=== PATIENT | male | born 1990 | race Caucasian/White ===

== ENCOUNTER 2019-12-13 07:29 | Emergency (ER) | payer MEDICAID, MEDICARE, SELFPAY | END 2019-12-13 09:57 | disposition admitted as inpatient to this hospital (09) | LOC: ER 03-09 10:18 | PROVIDERS: Emergency Provider Nurse Practitioner Family | DX: N45.1 Epididymitis (principal); F17.200 Nicotine dependence, unspecified, uncomplicated | CPT/HCPCS: 36415; 80053; 80306; 80307; 81003; 85025; 99284 ==

== ENCOUNTER 2019-12-13 07:29 | Inpatient (IN) | payer MEDICAID, SELFPAY ==
--- NOTE | 2019-12-13 07:33 | W.ED.PSYCH ---
HPI - Psych General: Chief Complaint: Psychiatric Symptoms Stated Complaint: SI Time Seen by Provider: 12/13/19 07:32 History of Present Illness: HPI Narrative: 29-year-old male patient comes in with his father for suicidal thoughts. Patient is agitated and upset due to not being able to get his medication prescribed. Patient has a history of schizophrenia. Patient had been on Seroquel but was taken off of it and 2018 and states that nothing that has been prescribed since then has been able to help him control his outbursts and his paranoid thoughts. Patient since October 29 reports that he has had more more suicidal thoughts. Medically patient states that he has had problems with elevated blood pressure in the past. Patient denies any alcohol use. Patient does report marijuana use. Patient does have a history of tobacco use but had stopped smoking cigarettes and August last year. Patient does have 2 kids with an estranged . Patient is in a present relationship with another female that is . Patient has had history of arrests with reported 38 times in the past and a 311-day stent [facility]. Patient appears well. Patient appears in no pain. Patient respects his father and praises his assistance. Patient does not want to talk about his mother, and becomes more agitated when questioned about her. Associated symptoms: Reports suicidal ideation Review of Systems General: Reports: 10 or more systems reviewed and unremarkable except in HPI and below Psych: Reports: anxiety, mood swings, irritability, paranoia and suicidal ideation PFSH ED PFSH: Statuses (acute, chronic, etc) shown below reflect problem list status as previously entered and may not be historically accurate Social History Smoking and tobacco status: former smoker Physical Exam Const: COMMON NORMALS: no apparent distress and oriented x3 GENERAL APPEARANCE: cooperative HENMT: COMMON NORMALS: normocephalic, external ears normal, EAC's normal, TM's normal bilaterally and external nose normal HEAD & SCALP: normal to inspection and normocephalic FACE & SINUS: normal facial exam NOSE: external nose normal GENERAL EAR: hearing not grossly impaired EXTERNAL EAR: Yes external ears normal EXTERNAL AUDITORY CANAL: EAC's normal TYMPANIC MEMBRANE: TM's normal bilaterally MOUTH: oral and palatal mucosa normal THROAT: posterior oropharynx normal Eye: COMMON NORMALS: PERRL and EOMs intact bilaterally PUPIL: Yes PERRL Neck/C-Spine: COMMON NORMALS: full ROM and no lymphadenopathy Lymph: LYMPHATIC: no lymphedema noted Chest: COMMONS NORMALS: inspection of chest normal and palpation of chest normal Resp: COMMON NORMALS: normal respiratory effort and clear to auscultation bilaterally AUSCULTATION: clear to auscultation bilaterally Cardio: COMMON NORMALS: regular rate and regular rhythm RATE: regular rate RHYTHM: regular rhythm GI: COMMON NORMALS: normal to inspection, nondistended, normoactive bowel sounds and non-tender : COMMON NORMALS: Yes no CVA tenderness BLADDER/KIDNEY EXAM: Yes no CVA tenderness Back/Pelvis: COMMON NORMALS: no CVA tenderness and thoracic and lumbar spine normal to inspection Extremity: COMMON NORMALS: normal to inspection GENERAL: No edema Neuro: COMMON NORMALS: oriented x3, moves all extremities and no focal motor deficits Psych: COMMON NORMALS: thought process normal (flight of idease, restless), cooperative, speech normal and denies homicidal ideation; negative for affect normal (agitated and restless) and negative for denies suicidal ideation SPEECH: Yes normal speech THOUGHT PROCESS: normal thought process (flight of idease, restless) Skin: COMMON NORMALS: no rashes or lesions noted GENERAL SKIN EXAM: no rashes or lesions noted MDM - Psych MDM Narrative: Medical decision making narrative: Patient comes in today for complaints of suicidal thoughts. Patient also reports increased agitation and restlessness. Patient appears upset, has flight of ideas, denies hallucination but does report paranoia. Exam respirations are even lungs are clear to auscultation skin is warm and dry and no observance of rash or other abnormality. Differential diagnosis includes substance abuse, suicidal thoughts, uncontrolled schizophrenia, acute psychosis. Patient was medicated in the ER with 200 mg of Seroquel and 2 mg of Ativan with control of agitation. Patient was cooperative through exam. But did have some outbursts and agitated actions. Laboratory values were insignificant. Patient was positive for THC. Discussed patient with Dr. Botello and Dr. Joseph. Dr. Rich did agreed to admission of patient to the psychiatric unit. Patient needs admission for monitoring for the protection of self and others. Patient needs admission for adjustment of medications and initiation of medications. Patient is voluntary for admission. Lab Data: Labs: Lab Results 12/13/19 12/13/19 12/13/19 Range/Units 07:57 07:57 08:18 WBC 6.6 (4.0-10.0) 10^3/ uL RBC 5.52 H (4.1-5.3) 10^6/u L Hgb 17.1 H (11.7-16.6) g/dL Hct 50.1 (42.0-52.0) % MCV 90.8 (80-94) fL MCH 31.0 (28.0-34.0) pg MCHC 34.1 (30.0-36.0) g/dL RDW 12.0 L (12.1-15.1) % Plt Count 420 H (130-400) 10^3/c mm MPV 9.0 (7.4-10.4) fL Neut % (Auto) 69.1 % Lymph % (Auto) 18.8 % [place] % (Auto) 8.2 % Eos % (Auto) 3.4 % Baso % (Auto) 0.2 % Neut # (Auto) 4.5 (1.8-7.7) 10^3/u L Lymph # (Auto) 1.2 (0.8-4.8) 10^3/u L [place] # (Auto) 0.5 (0.2-0.9) 10^3/u L Eos # (Auto) 0.2 (0.0-0.8) 10^3/u L Baso # (Auto) 0.0 (0.0-0.1) 10^3/u L Nucleated RBC % (a uto) 0 % Nucleated RBCs # 0.0 /100WBC Sodium 140 (136-145) mmol/L Potassium 4.4 (3.5-5.1) mmol/L Chloride 100 (98-107) mmol/L Carbon Dioxide 27 (22-29) mmol/L Anion Gap 17.4 (5-19) BUN 11 (6-20) mg/dL Creatinine 1.1 (0.7-1.2) mg/dL GFR Calculation 80.3 L (90-130) mL/min Glucose 131 H (74-109) mg/dL Calcium 10.7 H (8.6-10.0) mg/Dl Total Bilirubin 1.1 (0.15-1.2) mg/dL AST 17 (0-40) U/L ALT 15 (0-41) U/L Alkaline Phosphata se 74 (40-130) IU/L Total Protein 8.5 (6.6-8.7) g/dL Albumin 5.5 H (3.5-5.2) g/dL Globulin 3.0 (1.3-4.6) g/dL Urine Color Yellow (Yellow) Urine Appearance Clear (CLEAR) Urine pH 5 (5-7) Ur Specific Gravit y 1.015 (1.005-1.030) Urine Protein 1+ H (Negative) Urine Glucose (UA) Norm (Normal) Urine Ketones 1+ H (Negative) Urine Occult Blood Neg (Negative) Urine Nitrate Negative (Negative) Urine Bilirubin 1+ H (NEGATIVE) Urine Urobilinogen 1 H (Negative) mg/dL Ur Leukocyte Gabriella ase Negative (Negative) Urine RBC 0-4 H (0-2) /hpf Urine WBC 5-10 H (0-5) /hpf Ur Squamous Epith Cells 0-4 H (0-5) Urine Bacteria 1+ H (NONE) Hyaline Casts Rare Urine Mucus 2+ Salicylates < 0.3 L (3-10) mg/dL Urine Opiates Scre en (Negative) ng/mL Acetaminophen < 5.0 L (10-30) ug/mL Ur Barbiturates Sc reen (Negative) ng/mL Ur Phencyclidine S crn (Negative) ng/mL Ur Amphetamines Sc reen (Negative) ng/mL U Benzodiazepines Scrn (Negative) ng/mL Urine Cocaine Scre en (Negative) ng/mL U Marijuana (THC) Screen (Negative) ng/mL Ethyl Alcohol < 10 (0-10) mg/dL 12/13/19 Range/Units 08:18 WBC (4.0-10.0) 10^3/ uL RBC (4.1-5.3) 10^6/u L Hgb (11.7-16.6) g/dL Hct (42.0-52.0) % MCV (80-94) fL MCH (28.0-34.0) pg MCHC (30.0-36.0) g/dL RDW (12.1-15.1) % Plt Count (130-400) 10^3/c mm MPV (7.4-10.4) fL Neut % (Auto) % Lymph % (Auto) % [place] % (Auto) % Eos % (Auto) % Baso % (Auto) % Neut # (Auto) (1.8-7.7) 10^3/u L Lymph # (Auto) (0.8-4.8) 10^3/u L [place] # (Auto) (0.2-0.9) 10^3/u L Eos # (Auto) (0.0-0.8) 10^3/u L Baso # (Auto) (0.0-0.1) 10^3/u L Nucleated RBC % (a uto) % Nucleated RBCs # /100WBC Sodium (136-145) mmol/L Potassium (3.5-5.1) mmol/L Chloride (98-107) mmol/L Carbon Dioxide (22-29) mmol/L Anion Gap (5-19) BUN (6-20) mg/dL Creatinine (0.7-1.2) mg/dL GFR Calculation (90-130) mL/min Glucose (74-109) mg/dL Calcium (8.6-10.0) mg/Dl Total Bilirubin (0.15-1.2) mg/dL AST (0-40) U/L ALT (0-41) U/L Alkaline Phosphata se (40-130) IU/L Total Protein (6.6-8.7) g/dL Albumin (3.5-5.2) g/dL Globulin (1.3-4.6) g/dL Urine Color (Yellow) Urine Appearance (CLEAR) Urine pH (5-7) Ur Specific Gravit y (1.005-1.030) Urine Protein (Negative) Urine Glucose (UA) (Normal) Urine Ketones (Negative) Urine Occult Blood (Negative) Urine Nitrate (Negative) Urine Bilirubin (NEGATIVE) Urine Urobilinogen (Negative) mg/dL Ur Leukocyte Gabriella ase (Negative) Urine RBC (0-2) /hpf Urine WBC (0-5) /hpf Ur Squamous Epith Cells (0-5) Urine Bacteria (NONE) Hyaline Casts Urine Mucus Salicylates (3-10) mg/dL Urine Opiates Scre en Negative (Negative) ng/mL Acetaminophen (10-30) ug/mL Ur Barbiturates Sc reen Negative (Negative) ng/mL Ur Phencyclidine S crn Negative (Negative) ng/mL Ur Amphetamines Sc reen Negative (Negative) ng/mL U Benzodiazepines Scrn Negative (Negative) ng/mL Urine Cocaine Scre en Negative (Negative) ng/mL U Marijuana (THC) Screen Positive H (Negative) ng/mL Ethyl Alcohol (0-10) mg/dL Discharge Plan Discharge Patient Disposition: Admitted As Inpatient Clinical Impression: Suicidal ideation, Chronic schizophrenia Condition: Stable Coding Level of Care Code ED Personal Health Coach for Dalia Leslie Exam Problem Focused
[2019-12-13 07:35] VITALS: BMI 26.7
--- NOTE | 2019-12-13 07:48 | PC.NURSE ---
Pt placed in safe room, sitter at bedside. supervisor hospitality house notified of pt arrival. Pt placed in paper scrubs, belongings placed in safe. Security at bedside, Cody Sutherland at bedside. Pt is active and irritable, easily calmed. Pt with family at bedside.
--- NOTE | 2019-12-13 08:02 | PC.NURSE ---
pt given food and fluids.
[2019-12-13 08:03] LABS: Basophils % 0.2 %; Eosinophils # 0.2 10^3/uL (0.0-0.8); Eosinophils % 3.4 %; Hematocrit 50.1 % (42.0-52.0); Hemoglobin 17.1 g/dL (11.7-16.6); Lymphocytes # 1.2 10^3/uL (0.8-4.8); Lymphocytes % 18.8 %; Mean Corpuscular HGB Conc 34.1 g/dL (30.0-36.0); Mean Corpuscular Volume 90.8 fL (80-94); Monocytes # 0.5 10^3/uL (0.2-0.9); Monocytes % 8.2 %; Neutrophils # 4.5 10^3/uL (1.8-7.7); Neutrophils % 69.1 %; Nucleated Red Blood Cells % 0 %; Platelet Count 420 10^3/cmm (130-400); Red Blood Count 5.52 10^6/uL (4.1-5.3); White Blood Count 6.6 10^3/uL (4.0-10.0)
[2019-12-13] MEDS: quetiapine 100 mg Tablet 200 MG PO (08:14)
[2019-12-13] MEDS: LORazepam 1 mg Tablet PO (08:14)
[2019-12-13 08:22] LABS: Alanine Aminotransferase 15 U/L (0-41); Albumin Level 5.5 g/dL (3.5-5.2); Alkaline Phosphatase 74 IU/L (40-130); Anion Gap 17.4 (5-19); Aspartate Amino Transferase 17 U/L (0-40); Blood Urea Nitrogen 11 mg/dL (6-20); Calcium 10.7 mg/Dl (8.6-10.0); Carbon Dioxide 27 mmol/L (22-29); Chloride 100 mmol/L (98-107); Glomerular Filtration Rate 80.3 mL/min (90-130); Glucose 131 mg/dL (74-109); Potassium 4.4 mmol/L (3.5-5.1); Sodium 140 mmol/L (136-145); Total Bilirubin 1.1 mg/dL (0.15-1.2); Total Protein 8.5 g/dL (6.6-8.7)
[2019-12-13 08:26] LABS: Acetaminophen < 5.0 ug/mL (10-30); Alcohol Level < 10 mg/dL (0-10); Salicylate < 0.3 mg/dL (3-10)
[2019-12-13 08:49] LABS: Protein Urine 1+ (Negative); Specific Gravity, Urine 1.015 (1.005-1.030); Urine Appearance Clear (CLEAR); Urine Color Yellow (Yellow); pH Urine 5 (5-7)
[2019-12-13 08:50] LABS: Add Urine Microscopic? YES; Bilirubin Urine 1+ (NEGATIVE); Blood Urine Neg (Negative); Glucose Urine UA Norm (Normal); Ketones Urine 1+ (Negative); Leukocyte Esterase Urine Negative (Negative); Nitrate Urine Negative (Negative); Urobilinogen Urine 1 mg/dL (Negative)
[2019-12-13 08:52] LABS: Hyaline Casts Urine RARE; Mucus Urine 2+; RBC Urine 0-4 /hpf (0-2)
[2019-12-13 08:53] LABS: Add Urine Culture? No; Bacteria Urine 1+; Squamous Epithelial Cell Urine 0-4 (0-5)
--- NOTE | 2019-12-13 08:55 | PC.NURSE ---
assessment after anxiety medication administration-pt reports feeling less anxious. pt is no longer pacing in room or cursing loudly. pt sitting in chair calmly. ed provider notified.
[2019-12-13 09:02] LABS: Amphetamines Screen Urine Negative (Negative); Barbiturates Screen Urine Negative (Negative); Benzodiazepines Screen Urine Negative (Negative); Cocaine Screen Urine Negative (Negative); Opiate Screen Urine Negative (Negative); PCP Screen Urine Negative (Negative); THC Screen Urine Positive (Negative)
[2019-12-13 09:50] VITALS: BP 138/77; PULSE 123; RESP 14; TEMP 36.4; O2SAT 99
[2019-12-13 10:23] VITALS: BP 131/78; PULSE 113; RESP 18; TEMP 36.3; O2SAT 97
[2019-12-13] MEDS: quetiapine 100 mg Tablet PO ×2 (13:07→21:55)
--- NOTE | 2019-12-13 13:10 | PC.NURSE ---
PRN SEROQUEL PT GIVEN PRN SEROQUEL 100MG PO FOR AGITATION.
[2019-12-13 14:00] VITALS: BP 125/83; PULSE 107; RESP 19; TEMP 36.4
[2019-12-13 20:40] VITALS: BP 127/73; PULSE 88; RESP 21; TEMP 36.4; O2SAT 98
[2019-12-13] MEDS: doxepin 50 mg Capsule PO (21:55)
--- NOTE | 2019-12-13 23:11 | PC.NURSE ---
PT INTERVIEWED EARLY IN SHIFT BY ADMINISTRATION ASSISTANT. VERBALIZED HE WAS DEPRESSED AND SI WITHOUT PLAN. DURING INTERVIEW PT APPEARED TO HAVE DIFFICULTY IN FOCUSING AND UNABLE TO SIT STILL. PT HYPER TALKATIVE AND SPEECH PRESSURED. NOTED TO BE TANGENTIAL AND ENDORSED AH'S THAT ARGUE WITH HIM ON WHETHER HE SHOULD KILL HIS GIRLFRIEND. ADMITTED TO THOUGHTS OF HURTING OTHERS BUT DENIED TO TELL WHO THE PERSON/PERSONS WERE. ALSO ENDORSED VH'S OF OLD MAN THAT IS POINTING AT HIM TO GO A CERTAIN DIRECTION. LATER PT STARTED MOVING ALL THE SEATS TOGETHER. WHEN ASKED TO RETURN THEM TO WHERE THEY WERE PT SHOVED THEM TOGETHER AND ALMOST HIT ADMINISTRATION ASSISTANT. AT THAT TIME PT VERBALIZED THAT HE WAS THE STRONGEST PERSON THERE. ABLE TO CALM SELF DOWN. AT BEDTIME PT MEDICATED WITH DOXEPIN 50MGS AND SEROQUEL 100MGS. PT RESTING IN BED WITH EYES CLOSED AT THIS TIME. WILL CONTINUE TO MONITOR FREQUENTLY.
[2019-12-14 06:00] VITALS: BP 114/70; PULSE 79; RESP 18; TEMP 36.6; O2SAT 99
[2019-12-14] MEDS: quetiapine 100 mg Tablet PO ×3 (07:20→20:37)
--- NOTE | 2019-12-14 07:31 | P.HP_ITS ---
Providers/Chief Complaint Admitting Physician: Godwin Joseph MD Chief Complaint: SI HPI NPU History of Present Illness Arian Ahumada III is a 29 year old male Chief complaint: Make the voices stop. I have these voices in my head. They will stop. I used to take 800 mg of Seroquel. Note the Seroquel never help with the voices. But it took 800 mg to go to sleep. History of present illness: Marie Ahumada III Is a 29-year-old man who presents as it is really quite difficult to figure out. The story that he provides is internally consistent and generally logical but is inconsistent with his current presentation. All observations have described him as being a very volatile emotionally. He reports himself as having auditory hallucinations. He is in such significant emotional distress at the time of first interview, that he was unable to explore the variety and the breath of those hallucinations. He did say that they are always there and they never go away. He cannot describe them more other than that they are quite intrusive and affect his life and all areas. He says also that he cannot stop pacing. He adamantly denies that the pacing has any connection to prescriptions for the Seroquel and that there would be a side effect of Seroquel. He reported that 200 mg of Seroquel and 1 mg of Ativan giving yesterday was quite helpful. He is able to provide a little more information. she is reluctant to be seen as a week and is very hesitant to discuss symptoms of depression. However on multiple occasions he was observed crying in his room. He admits that he feels hopeless and worthless as a human being. His greatest desire is to have a relationship involving children where he can take care of them. I would give anything. I get my friends to assure off my back. At the same time his explosive outbursts are a real limiting factor in his relationships. He does report a history of trauma but is unwilling to discuss it. He reports nightmares. Urine drug screen is negative and blood alcohol level is below measurable limit. Information provided by emergency room staff: HPI Narrative: 29-year-old male patient comes in with his father for suicidal thoughts. Patient is agitated and upset due to not being able to get his medication prescribed. Patient has a history of schizophrenia. Patient had been on Seroquel but was taken off of it and 2017 and states that nothing that has been prescribed since then has been able to help him control his outbursts and his paranoid thoughts. Patient since October 27 reports that he has had more more suicidal thoughts. Medically patient states that he has had problems with elevated blood pressure in the past. Patient denies any alcohol use. Patient does report marijuana use. Patient does have a history of tobacco use but had stopped smoking cigarettes and August of last year. Patient does have 2 kids with an estranged . Patient is in a present relationship with another female that is . Patient has had history of arrests with reported 38 times in the past and a 311-day stent [facility]. Patient appears well. Patient appears in no pain. Patient respects his father and praises his assistance. Patient does not want to talk about his mother, and becomes more agitated when questioned about her. Mental health history: Social history: the patient is very reluctant to discuss his own personal social life. He says that he wants to have children because he never got to have a father when he was growing up who feels that he is able to support himself findings. Signed. He is perplexed that no woman with children will stay in his presence. 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 At the same time, he acknowledges that he is quite explosive and very sensitive to perceived slight. He has a tendency to expect to be treated badly and looks for signs of such behavior and attitude in others as signs of betrayal. He states that he was just released recently from incarceration for over 300 days. He was given no medications while in senior living. The tried to give him Remeron. He said it is illegal to give me Seroquel while in senior living. Legal history:According to the [place] public record, His most recent infection was for resisting arrest and he was given shock incarceration.He was convicted of resisting arrest on 1 prior occasion as well as threatening and harassing a minor and driving without a muscular. We have no access to arrest records from neighboring states. Past medical history:See documents from the emergency room nursing notes. Mental Status Exam: Patient is observed this morning at pacing incessantly throughout the unit and a rapid manner. Last evening he was also observed to be significantly vigilant though it did not cause disruption to the unit or place anybody at risk. During interview, he sits with his hands over his ears. Eye contact is fleeting. However it should be noted, that shortly after he was given when necessary dosing of Seroquel and lorazepam, he was sitting relaxed in the common area playing cards with peers demonstrating no indications of psychosis or even discomfort Or emotional distressof any kind. Appearance: hygiene is Good; no gross neurological deficits., gait is unremarkable; AIMS=0 Speech: Speech is of normal rate and rhythm and easily understood. Thought processes: Thought processes are [place]. Judgment is adequate for safety. Associations: intact Psychotic processes: There is no indication of guarding or paranoia. There is no attention to the internal stimuli. Auditory and visual hallucinations are denied. Judgment: Insight is fair. Problem solving skills are adequate for safety. Orientation: The patient is oriented to person, place time and situation. Memory: no deficits noted in immediate, intermediate, or remote spheres. Attention: The patient is alert and interpersonally engaged. Language: Verbalizations are coherent. Fund of knowledge: Fund of knowledge is poor. Affect/Mood: Affect is at times tearful with a depressed mood. He denied suicid al ideation Affective range Constricted Psychosis: perception unimpaired except through cognitive distortion; reality testing intact. Diagnoses:Major depression - single, severe, with psychotic fetures Schizophrenia - by history PTSD - presumtpive Assessment: first goal is to establish an effective diameter cycle sleeping at night and awake during the day and then try and manage symptoms of depression and psychosis. Treatment plan: Due to the psychiatric conditions and treatment listed in the Assessment and Plan - the patient requires continued hospitalization. Will provide a safe and therapeutic environment for patient.. Will continue inpatient treatment to allow for medication adjustment and monitoring. Will continue q15 min safety checks. The patient presents a diagnostic [place]. At this time we are going to initiate scheduled Seroquel will also provide medication for anxiety and insomnia. He adamantly states that he has taken 800 mg of Seroquel to help him sleep but at no time did Seroquel help with his primary complaint of auditory hallucinations. We are uncertain to what degree he is a lifelong. in the end, we decided to start off with 100 mg of Seroquel when necessary throughout the day today, he was willing to try 600 mg of Seroquel, 100 mg of doxepin for sleep and 20 mg of Paxil for bedtime. Monitor patient's mood, sleep, appetite, and behavior closely. Encourage patient to participate in individual and group therapeutic sessions on the [place]. Estimated length of stay 5 days The expected benefits and potential side effects of patient's psychiatric medications were discussed with the patient. The patient understands and consents to treatment.CRITERIA FOR DISCHARGE: stable on medications and no longer an imminent risk to self or others Meds NPU Home Medications Medication Instructions Recorded Confirmed Type No Known Home Medications 12/13/19 12/13/19 History Allergies Allergy/AdvReac Type Severity Reaction Status Date / Time amoxicillin Allergy ALGY-Rash Verified 12/13/19 07:35 codeine Allergy Unknown Verified 12/13/19 07:35 magnesium Allergy ALGY-Rash Verified 12/13/19 07:35 magnesium hydroxide Allergy ADR-Swelling Verified 12/13/19 07:35 [From Milk of Magnesia] of the Eye Penicillins Allergy ALGY-Hives Verified 12/13/19 07:35 PFSH NPU PFSH: Statuses (acute, chronic, etc) shown below reflect problem list status as previously entered and may not be historically accurate Social History Smoking and tobacco status: former smoker Vitals/I&O/Wt Last Vital Signs Temp 97.9 F 12/14/19 06:00 Pulse 79 12/14/19 06:00 Resp 18 12/14/19 06:00 BP 114/70 12/14/19 06:00 Pulse Ox 99 12/14/19 06:00 Weight last 48 hrs Weight 83.28 kg Weight 79.832 kg Data NPU : 12/13/19 07:57 12/13/19 07:57 Other Labs: Laboratory Tests 12/13/19 12/13/19 07:57 08:18 Urine Opiates Screen Negative Ur Barbiturates Screen Negative Ur Amphetamines Screen Negative U Benzodiazepines Scrn Negative Urine Cocaine Screen Negative U Marijuana (THC) Screen Positive H Ethyl Alcohol < 10 Involuntary Hold Information 96 Hour Hold: 96 Hour Involuntary Admission: No Attestations NPU Medical Necessity Statement*: patient will remain the hospital for 5 nights while we're able to get his medications effectively without side effects. Coding Level of Care Code Acute Glove Examiner for Dalia Leslie
[2019-12-14] MEDS: quetiapine 100 mg Tablet 200 MG PO ×2 (09:25→13:42)
[2019-12-14] MEDS: LORazepam 1 mg Tablet PO (09:25)
[2019-12-14 14:00] VITALS: BP 123/70; PULSE 102; RESP 18; TEMP 36.4; O2SAT 97
[2019-12-14 20:00] VITALS: BP 131/89; PULSE 82; RESP 24; TEMP 36.6; O2SAT 99
[2019-12-14] MEDS: doxepin 50 mg Capsule 100 MG PO (20:36)
[2019-12-14] MEDS: PARoxetine 20 mg Tablet PO (20:36)
[2019-12-14] MEDS: quetiapine 300 mg Tablet 600 MG PO (20:55)
[2019-12-14 22:00] VITALS: BP 131/89; PULSE 82; RESP 24; TEMP 36.6; O2SAT 99
[2019-12-15 06:00] VITALS: BP 121/74; PULSE 103; RESP 20; TEMP 36.6; O2SAT 98
[2019-12-15] MEDS: quetiapine 100 mg Tablet PO ×3 (08:02→20:46)
[2019-12-15] MEDS: hyDROXYzine 25 mg Capsule 50 MG PO (08:02)
--- NOTE | 2019-12-15 08:02 | PC.NURSE ---
PRN VISTARIL VISTARIL 50MG PO PER PT C/O ANXIETY/AGITATION. WILL CONTINUE TO MONITOR FOR MEDICATION EFFECTIVENESS.
--- NOTE | 2019-12-15 08:57 | PC.NURSE ---
PRN VISTARIL FOLLOW UP MEDICATION NOT EFFECTIVE. SEE NEXT NOTE.
[2019-12-15] MEDS: LORazepam 2 mg Tablet PO ×2 (09:01→16:44)
--- NOTE | 2019-12-15 09:01 | PC.NURSE ---
PRN ATIVAN ATIVAN 2MG PO PER PT C/O SEVERE ANXIETY. PATIENT PACING ROOM. WILL CONTINUE TO MONITOR FOR MEDICATION EFFECTIVENESS.
--- NOTE | 2019-12-15 10:00 | PC.NURSE ---
PRN ATIVAN FOLLOW UP MEDICATION EFFECTIVE. PATIENT IS SITTING IN THE DAYROOM CALM AND COOPERATIVE.
[2019-12-15 14:00] VITALS: BP 138/92; PULSE 103; RESP 20; TEMP 36.6; O2SAT 97
--- NOTE | 2019-12-15 14:59 | PC.SOCIAL ---
[facility] completed Medicaid application with patient.
--- NOTE | 2019-12-15 16:14 | PM.NPN ---
Subjective NPU Subjective: Interval history: patient is more open to discussing his psychosocial situation discretely. He was found crying in his room and was quite embarrassed by the activity. He has been rejected by a woman that he wanted to take in and take care of. He talked about wanting to be a father but not necessarily father children. He is looking to find a woman who has children that he can take care of. He talked about his frustrations and trying to be a good supportive person and being rejected because of his temper. Mental Status Exam MSE Comments: Mental Status Exam: Patient is observed this morning at pacing incessantly throughout the unit and a rapid manner. Last evening he was also observed to be significantly vigilant though it did not cause disruption to the unit or place anybody at risk. During interview, he sits with his hands over his ears. Eye contact is fleeting. However it should be noted, that shortly after he was given when necessary dosing of Seroquel and lorazepam, he was sitting relaxed in the common area playing cards with peers demonstrating no indications of psychosis or even discomfort Or emotional distressof any kind. Appearance: hygiene is Good; no gross neurological deficits., gait is unremarkable; AIMS=0 Speech: Speech is of normal rate and rhythm and easily understood. Thought processes: Thought processes are [place]. Judgment is adequate for safety. Associations: intact Psychotic processes: There is no indication of guarding or paranoia. There is no attention to the internal stimuli. Auditory and visual hallucinations are denied. Judgment: Insight is fair. Problem solving skills are adequate for safety. Orientation: The patient is oriented to person, place time and situation. Memory: no deficits noted in immediate, intermediate, or remote spheres. Attention: The patient is alert and interpersonally engaged. Language: Verbalizations are coherent. Fund of knowledge: Fund of knowledge is poor. Affect/Mood: Affect is at times tearful with a depressed mood. He denied suicidal ideation Affective range Constricted Psychosis: perception unimpaired except through cognitive distortion; reality testing intact. Diagnoses:Major depression - single, severe, with psychotic fetures Schizophrenia - by history PTSD - presumtpive Assessment: Treatment plan: Due to the psychiatric conditions and treatment listed in the Assessment and Plan - the patient requires continued hospitalization. Will provide a safe and therapeutic environment for patient.. Will continue inpatient treatment to allow for medication adjustment and monitoring. Will continue q15 min safety checks. Hospital Day #1: first goal is to establish an effective diameter cycle sleeping at night and awake during the day and then try and manage symptoms of depression and psychosis. The patient presents a diagnostic Conundrum. At this time we are going to initiate scheduled Seroquel will also provide medication for anxiety and insomnia. He adamantly states that he has taken 800 mg of Seroquel to help him sleep but at no time did Seroquel help with his primary complaint of auditory hallucinations. We are uncertain to what degree he is a lifelong. in the end, we decided to start off with 100 mg of Seroquel when necessary throughout the day today, he was willing to try 600 mg of Seroquel, 100 mg of doxepin for sleep and 20 mg of Paxil for bedtime. hospital day #2:Become increasingly apparent that the patient struggles with symptoms of severe depression amplified by psychogenic conflict psychosocial stressors. He continues to report auditory hallucinations are present but not as prominent. He does complain of his degree of depression, hopelessness, confusion, and nightmares. Plan: Replace doxepin with prazosin 2 mg at bedtime targeting PTSD.we'll continue with the paroxetine 20 mg at bedtime and Seroquel 900 mg daily. He remains a voluntary patient and is not an eminent risk to self or others. Cognition: Level of Consciousness: Awake, Alert, Inappropriate and Restless Patient Cognition Impaired: No Ability to Follow Directions: Good Patient Orientation (long list): Person and Place Hallucination Type: None Delusion Description: Not Present Thought Process: Circumstantial Affect: Affect Description: Calm Depressive Symptoms: Back Pain and Feelings of Worthlessness Behavior: Patient Behavior: Cooperative Speech Pattern: Clear Vitals/I&O/Wt Last Vital Signs Temp 97.8 F 12/15/19 14:00 Pulse 103 H 12/15/19 14:00 Resp 20 H 12/15/19 14:00 BP 138/92 12/15/19 14:00 Pulse Ox 97 12/15/19 14:00 Weight last 48 hrs Weight 83.28 kg Data NPU : 12/13/19 07:57 12/13/19 07:57 Involuntary Hold Information 96 Hour Hold: 96 Hour Involuntary Admission: No Attestations NPU Medical Necessity Statement*: patient to remain in the hospital another 3-4 nights until his auditory hallucinations are manageable. Coding Level of Care Code Acute Clinical Phlebotomist for Dalia Leslie
--- NOTE | 2019-12-15 16:44 | PC.NURSE ---
PRN ATIVAN ATIVAN 2MG PO ONE TIME ORDER FOR SEVERE ANXIETY. PATIENT WAS ON THE PHONE YELLING AND SCREAMING. LONG WALL MINING MACHINE HELPER TALKED WITH PATIENT TO CALM PATIENT DOWN. PATIENT TOOK MEDICATION AND WENT TO THE DAYROOM AND WAS CALM AND COOPERATIVE.
--- NOTE | 2019-12-15 17:44 | PC.NURSE ---
PRN ATIVAN FOLLOW UP MEDICATION EFFECTIVE. PATIENT IS SITTING IN THE DAY ROOM WATCHING TV AND TALKING WITH OTHER PATIENTS.
[2019-12-15] MEDS: quetiapine 100 mg Tablet 200 MG PO (19:52)
[2019-12-15 20:36] VITALS: BP 139/83; PULSE 94; RESP 16; TEMP 36.4; O2SAT 97
[2019-12-15] MEDS: quetiapine 300 mg Tablet 600 MG PO (20:45)
[2019-12-15] MEDS: prazosin 1 mg Capsule PO (20:45)
--- NOTE | 2019-12-15 22:26 | PC.NURSE ---
PT UP TO DESK STATING THAT HE WAS FEELING LIKE HIS AGITATION WAS BUILDING AT 1949. MEDICATED WITH SEROQUEL 200MGS PO. RETURNED TO DAYROOM AF AND WAS SITTING QUIETLY. VERBALIZED FEELING CALMER AT THAT TIME. E. RESTING IN BED WITH EYES CLOSED AT THIS TIME. WILL CONTINUE TO MONITOR
[2019-12-16] MEDS: PARoxetine 20 mg Tablet PO (05:56)
[2019-12-16 06:00] VITALS: BP 145/66; PULSE 89; RESP 18; TEMP 36.4; O2SAT 98
--- NOTE | 2019-12-16 07:58 | P.PN_ITS ---
Subjective NPU Subjective: Interval history: Patient openly discusses his need to be seeing a therapist on the outside to talk his problems and utilize for reality testing for his life circumstances. He continues to report hallucinations but it is unclear wherther these are hallucinations or internal conversation. . Mental Status Exam MSE Comments: Mental Status Exam: Patient is again observed this morning at pacing incessantly throughout the unit and a rapid manner. However, during the interview he is able to sit still and dispaly no akathesia. Eye contact is improved. Appearance: hygiene is Good; no gross neurological deficits., gait is unremarkable; AIMS=0 Speech: Speech is of normal rate and rhythm and easily understood. Thought processes: Thought processes are [place]. Judgment is adequate for safety. Associations: intact Psychotic processes: There is no indication of guarding or paranoia. There is no attention to the internal stimuli. Auditory and visual hallucinations are denied. Judgment: Insight is fair. Problem solving skills are adequate for safety. Orientation: The patient is oriented to person, place time and situation. Memory: no deficits noted in immediate, intermediate, or remote spheres. Attention: The patient is alert and interpersonally engaged. Language: Verbalizations are coherent. Fund of knowledge: Fund of knowledge is poor. Affect/Mood: Affect is at times tearful with a depressed mood. He denied suicidal ideation Affective range Constricted Psychosis: perception unimpaired except through cognitive distortion; reality testing intact. Diagnoses:Major depression - single, severe, with psychotic fetures Schizophrenia - by history PTSD - presumtpive Assessment: Treatment plan: Due to the psychiatric conditions and treatment listed in the Assessment and Plan - the patient requires continued hospitalization. Will provide a safe and therapeutic environment for patient.. Will continue inpatient treatment to allow for medication adjustment and monitoring. Will continue q15 min safety checks. Hospital Day #1: first goal is to establish an effective diameter cycle sleeping at night and awake during the day and then try and manage symptoms of depression and psychosis. The patient presents a diagnostic Conundrum. At this time we are going to initiate scheduled Seroquel will also provide medication for anxiety and insomnia. He adamantly states that he has taken 800 mg of Seroquel to help him sleep but at no time did Seroquel help with his primary complaint of auditory hallucinations. We are uncertain to what degree he is a lifelong. in the end, we decided to start off with 100 mg of Seroquel when necessary throughout the day today, he was willing to try 600 mg of Seroquel, 100 mg of doxepin for sleep and 20 mg of Paxil for bedtime. hospital day #2:Become increasingly apparent that the patient struggles with symptoms of severe depression amplified by psychogenic conflict psychosocial stressors. He continues to report auditory hallucinations are present but not as prominent. He does complain of his degree of depression, hopelessness, confusion, and nightmares. Plan: Replace doxepin with prazosin 2 mg at bedtime targeting PTSD.we'll continue with the paroxetine 20 mg at bedtime and Seroquel 900 mg daily. He remains a voluntary patient and is not an eminent risk to self or others. HD#3: Patient openly discusses his need to be seeing a therapist on the outside to talk his problems and utilize for reality testing for his life circumstances. He continues to report hallucinations but it is unclear wherther these are hallucinations or internal conversation. Renmains unclear whetehr his pacing is akathesia. PLAN: trial of metaprolol 25 mg q am to try and reduce explsoiveness. Cognition: Level of Consciousness: Awake, Alert, Inappropriate and Restless Patient Cognition Impaired: No Ability to Follow Directions: Good Patient Orientation (long list): Person and Place Hallucination Type: None Delusion Description: Not Present Thought Process: Circumstantial Affect: Affect Description: Anxious Depressive Symptoms: Back Pain and Feelings of Worthlessness Behavior: Patient Behavior: Appropriate Speech Pattern: Appropriate Vitals/I&O/Wt Last Vital Signs Temp 97.6 F 12/16/19 06:00 Pulse 89 12/16/19 06:00 Resp 18 12/16/19 06:00 BP 145/66 12/16/19 06:00 Pulse Ox 98 12/16/19 06:00 Data NPU : 12/13/19 07:57 12/13/19 07:57 Involuntary Hold Information 96 Hour Hold: 96 Hour Involuntary Admission: No Attestations NPU Medical Necessity Statement*: Pt to remain in hospital another 4 nights until he is able to declare that he is not an imminent risk to kill himself or someone else Coding Level of Care Code Acute Clinical Staff Rn for Dalia Leslie
[2019-12-16] MEDS: metoprolol succinate ER (24 HR) 25 mg Tablet PO (08:31)
[2019-12-16] MEDS: quetiapine 100 mg Tablet PO ×3 (08:31→21:21)
[2019-12-16] MEDS: quetiapine 100 mg Tablet 200 MG PO (09:37)
[2019-12-16] MEDS: OLANZapine ODT 5 MG TABLET PO (12:43)
--- NOTE | 2019-12-16 12:43 | PC.NURSE ---
Addendum entered by Kelly Nunez LPN 12/16/19 13:52: MEDICATION EFFECTIVE. PATIENT IS SITTING IN THE DAY ROOM TALKING WITH OTHER PATIENTS. Original Note: PRN ZYPREXA ZYDIS ZYPREXA ZYDIS 5MG PO FOR AGITATION/PSYCHOSIS. WILL CONTINUE TO MONITOR FOR MEDICATION EFFECTIVENESS.
[2019-12-16 14:00] VITALS: BP 116/70; PULSE 97; RESP 16; TEMP 36.8; O2SAT 97
[2019-12-16 21:16] VITALS: BP 138/82; PULSE 85; RESP 17; TEMP 36.4; O2SAT 97
[2019-12-16] MEDS: quetiapine 300 mg Tablet 600 MG PO (21:21)
[2019-12-16] MEDS: prazosin 1 mg Capsule PO (21:21)
[2019-12-16] MEDS: doxepin 50 mg Capsule PO (21:21)
[2019-12-17 06:00] VITALS: BP 127/80; PULSE 104; RESP 22; TEMP 36.6; O2SAT 97
[2019-12-17] MEDS: PARoxetine 20 mg Tablet PO (06:10)
[2019-12-17] MEDS: OLANZapine ODT 5 MG TABLET PO (07:54)
--- NOTE | 2019-12-17 07:54 | PC.NURSE ---
PRN ZYPREXA ZYDIS ZYPREXA ZYDIS 5MG PO PER PT C/O AGITATION/HALLUCINATIONS. WILL CONTINUE TO MONITOR FOR MEDICATION EFFECTIVENESS.
--- NOTE | 2019-12-17 09:00 | PC.NURSE ---
PRN ZYPREXA ZYDIS FOLLOW UP MEDICATION EFFECTIVE. NO FURTHER C/O AGITATION/HALLUCINATIONS.
[2019-12-17] MEDS: metoprolol succinate ER (24 HR) 25 mg Tablet PO (09:10)
[2019-12-17] MEDS: quetiapine 100 mg Tablet PO (09:10)
[2019-12-17 12:09] VITALS: BP 127/80; PULSE 104; RESP 22; TEMP 36.6; O2SAT 97
[2019-12-17 12:23] VITALS: BP 127/80; PULSE 104; RESP 22; TEMP 36.6; O2SAT 97
--- NOTE | 2019-12-17 12:59 | PM.NDC ---
Reason for Visit Reason for Visit: Reason For Visit: SI Hospital Course Hospital Course Chief complaint: Make the voices stop. I have these voices in my head. They will stop. I used to take 800 mg of Seroquel. Note the Seroquel never help with the voices. But it took 800 mg to go to sleep. History of present illness: Marie Ahumada III Is a 29-year-old man who presents as it is really quite difficult to figure out. The story that he provides is internally consistent and generally logical but is inconsistent with his current presentation. All observations have described him as being a very volatile emotionally. He reports himself as having auditory hallucinations. He is in such significant emotional distress at the time of first interview, that he was unable to explore the variety and the breath of those hallucinations. He did say that they are always there and they never go away. He cannot describe them more other than that they are quite intrusive and affect his life and all areas. He says also that he cannot stop pacing. He adamantly denies that the pacing has any connection to prescriptions for the Seroquel and that there would be a side effect of Seroquel. He reported that 200 mg of Seroquel and 1 mg of Ativan giving yesterday was quite helpful. He is able to provide a little more information. she is reluctant to be seen as a week and is very hesitant to discuss symptoms of depression. However on multiple occasions he was observed crying in his room. He admits that he feels hopeless and worthless as a human being. His greatest desire is to have a relationship involving children where he can take care of them. I would give anything. I get my friends to assure off my back. At the same time his explosive outbursts are a real limiting factor in his relationships. He does report a history of trauma but is unwilling to discuss it. He reports nightmares. Urine drug screen is negative and blood alcohol level is below measurable limit. Information provided by emergency room staff: HPI Narrative: 29-year-old male patient comes in with his father for suicidal thoughts. Patient is agitated and upset due to not being able to get his medication prescribed. Patient has a history of schizophrenia. Patient had been on Seroquel but was taken off of it and 2018 and states that nothing that has been prescribed since then has been able to help him control his outbursts and his paranoid thoughts. Patient since October 29 reports that he has had more more suicidal thoughts. Medically patient states that he has had problems with elevated blood pressure in the past. Patient denies any alcohol use. Patient does report marijuana use. Patient does have a history of tobacco use but had stopped smoking cigarettes and August of last year. Patient does have 2 kids with an estranged . Patient is in a present relationship with another female that is . Patient has had history of arrests with reported 38 times in the past and a 311-day stent Snf. Patient appears well. Patient appears in no pain. Patient respects his father and praises his assistance. Patient does not want to talk about his mother, and becomes more agitated when questioned about her. Mental health history: Social history: the patient is very reluctant to discuss his own personal social life. He says that he wants to have children because he never got to have a father when he was growing up who feels that he is able to support himself findings. Signed. He is perplexed that no woman with children will stay in his presence. 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 At the same time, he acknowledges that he is quite explosive and very sensitive to perceived slight. He has a tendency to expect to be treated badly and looks for signs of such behavior and attitude in others as signs of betrayal. He states that he was just released recently from incarceration for over 300 days. He was given no medications while in group home. The tried to give him Remeron. He said it is illegal to give me Seroquel while in group home. Legal history:According to the [place] public record, His most recent infection was for resisting arrest and he was given shock incarceration.He was convicted of resisting arrest on 1 prior occasion as well as threatening and harassing a minor and driving without a muscular. We have no access to arrest records from neighboring states. Past medical history:See documents from the emergency room nursing notes. Diagnoses:Major depression - single, severe, with psychotic features Schizophrenia - by history PTSD - Assessment: first goal is to establish an effective diameter cycle sleeping at night and awake during the day and then try and manage symptoms of depression and psychosis. Discharge Summary Treatment plan: Due to the psychiatric conditions and treatment listed in the Assessment and Plan - the patient requires continued hospitalization. Will provide a safe and therapeutic environment for patient.. Will continue inpatient treatment to allow for medication adjustment and monitoring. Will continue q15 min safety checks. Hospital Day #1: first goal is to establish an effective diameter cycle sleeping at night and awake during the day and then try and manage symptoms of depression and psychosis. The patient presents a diagnostic Conundrum. At this time we are going to initiate scheduled Seroquel will also provide medication for anxiety and insomnia. He adamantly states that he has taken 800 mg of Seroquel to help him sleep but at no time did Seroquel help with his primary complaint of auditory hallucinations. We are uncertain to what degree he is a lifelong. in the end, we decided to start off with 100 mg of Seroquel when necessary throughout the day today, he was willing to try 600 mg of Seroquel, 100 mg of doxepin for sleep and 20 mg of Paxil for bedtime. hospital day #2:Become increasingly apparent that the patient struggles with symptoms of severe depression amplified by psychogenic conflict psychosocial stressors. He continues to report auditory hallucinations are present but not as prominent. He does complain of his degree of depression, hopelessness, confusion, and nightmares. Plan: Replace doxepin with prazosin 2 mg at bedtime targeting PTSD.we'll continue with the paroxetine 20 mg at bedtime and Seroquel 900 mg daily. He remains a voluntary patient and is not an eminent risk to self or others. HD#3: Patient openly discusses his need to be seeing a therapist on the outside to talk his problems and utilize for reality testing for his life circumstances. He continues to report hallucinations but it is unclear wherther these are hallucinations or internal conversation. Renmains unclear whetehr his pacing is akathesia. PLAN: trial of metaprolol 25 mg q am to try and reduce explsoiveness. HD#4: By hospital day #4, the patient had established an effective diurnal sleep wake cycle. He was much less irritable. He was displaying better frustration Tolerance and problem-solving skills. His explosive outbursts had ceased. He continued to report auditory hallucinations but they were not interfering with his daily activities. His major problem at this time was managing the considerable psychosocial upheaval that seems to surround his life. He continues to grieve over the loss of his girlfriend who apparently also took his dog. He states that he is going to go live with his father though his mother is still involved. Historically, he reports that they have not been particularly supportive in the past. Involuntary Hold Information 96 Hour Hold: 96 Hour Involuntary Admission: No Mental Status Exam MSE Comments: Mental Status Exam: Patient is No longer pacing incessantly throughout the unit and a rapid manner. Eye contact is Good. Appearance: hygiene is Good; no gross neurological deficits., gait is unremarkable; AIMS=0 Speech: Speech is of normal rate and rhythm and easily understood. Thought processes: Thought processes are [place]. Judgment is adequate for safety. Associations: intact Psychotic processes: There is no indication of guarding or paranoia. There is no attention to the internal stimuli. Auditory are Reported to be present that reality testing is unimpaired. visual hallucinations are denied. Judgment: Insight is fair. Problem solving skills are adequate for safety. Orientation: The patient is oriented to person, place time and situation. Memory: no deficits noted in immediate, intermediate, or remote spheres. Attention: The patient is alert and interpersonally engaged. Language: Verbalizations are coherent. Fund of knowledge: Fund of knowledge is poor. Affect/Mood: Affect is Consistent with a Self-reported euthymicmood. He denied suicidal ideation Affective range Improved Psychosis: perception unimpaired except through cognitive distortion; reality testing intact. Discharge Data Vitals: Last Vital Signs Temp 98 F 12/17/19 12:23 Pulse 104 H 12/17/19 12:23 Resp 22 H 12/17/19 12:23 BP 127/80 12/17/19 12:23 Pulse Ox 97 12/17/19 12:23 Discharge Plan Discharge Patient Disposition: Home, Self-Care Condition: Stable Prescriptions: New doxepin 50 mg Capsule 50 mg PO BEDTIME PRN (Reason: insomnia) 30 Days Qty: 2 RF: 2 quetiapine 300 mg Tablet 600 mg PO BEDTIME Qty: 60 RF: 4 prazosin 1 mg Capsule 1 mg PO BEDTIME Qty: 30 RF: 4 quetiapine 100 mg Tablet 100 mg PO TID Qty: 90 RF: 4 paroxetine HCl 20 mg Tablet 20 mg PO QAM Qty: 30 RF: 4 metoprolol succinate 25 mg Tablet Extended Release 24 Hr 25 mg PO DAILY Qty: 30 RF: 4 lorazepam 1 mg Tablet 1 mg PO Q6H PRN (Reason: Anxiety) Qty: 60 RF: 2 Discharge Orders: Discharge Order (Routine); Ordered 12/17/19 Ordered By: Godwin Joseph Discharge Diet: Regular Discharge Activity: Increase activity as tolerated Activity Restrictions/Additional Instructions: [facility] [address] [facility] [address] [facility] [address] Walk In Between the Hours of 8AM and 5PM Urgent Care [address] [address] Walk In 10AM- 7PM Discharge Attestations NPU Time Spent in Discharge Care*: greater than 30 min Coding Level of Care Code Acute Environmental Web Crawler for Dalia Leslie
[2019-12-17 14:11] VITALS: BP 127/80; PULSE 104; RESP 22; TEMP 36.6; O2SAT 97
== END 2019-12-17 14:11 | disposition home or self-care (01) | DRG 885 ==
LOC: ER 09:17 → NP 09:46
PROVIDERS: Admitting Provider Psychiatry & Neurology Psychiatry; Emergency Provider Nurse Practitioner Family; Visit Provider Psychiatry & Neurology Psychiatry
DX: F32.3 Major depressive disorder, single episode, severe with psychotic features (principal); R45.851 Suicidal ideations; F43.10 Post-traumatic stress disorder, unspecified; F41.9 Anxiety disorder, unspecified; G47.00 Insomnia, unspecified; Z87.891 Personal history of nicotine dependence
CPT/HCPCS: 12345; 36415; 80053; 80306; 80307; 81003; 85025; 99284

== ENCOUNTER 2019-12-28 20:41 | Emergency (ER) | payer MEDICAID, SELFPAY ==
[2019-12-28 21:05] VITALS: BP 152/75; PULSE 95; RESP 16; TEMP 36.7; O2SAT 96; BMI 30.2
--- NOTE | 2019-12-28 21:18 | ED_ITS ---
HPI - Dental/Oral General: Chief complaint: Dental/Oral Stated complaint: dental pain Time Seen by Provider: 12/28/19 21:02 Source: patient Mode of arrival: ambulatory Limitations: no limitations History of Present Illness: HPI Narrative: Patient comes in with 3-day history of dental pain to the #19 tooth which is the first molar to the left lower jaw. Patient started having swelling to the jaw this morning. Patient appears well. Patient appears in no acute distress. Review of Systems General: Reports: 10 or more systems reviewed and unremarkable except in HPI and below ENMT: Reports: mouth pain PFSH ED PFSH: Statuses (acute, chronic, etc) shown below reflect problem list status as previously entered and may not be historically accurate Social History Smoking and tobacco status: current every day smoker Current gender identity: Male Physical Exam Const: COMMON NORMALS: no apparent distress and oriented x3 GENERAL APPEARANCE: cooperative HENMT: COMMON NORMALS: normocephalic, external ears normal, EAC's normal, TM's normal bilaterally and external nose normal HEAD & SCALP: normal to inspection and normocephalic FACE & SINUS: normal facial exam NOSE: external nose normal GENERAL EAR: hearing not grossly impaired EXTERNAL EAR: Yes external ears normal EXTERNAL AUDITORY CANAL: EAC's normal TYMPANIC MEMBRANE: TM's normal bilaterally MOUTH: oral and palatal mucosa normal TEETH & GINGIVA: Yes abnormal tooth and associated gingiva (Poor dentition with multiple caries, swelling of the gingiva to the lateral side of the first molar left lower jaw.) THROAT: posterior oropharynx normal Eye: COMMON NORMALS: PERRL and EOMs intact bilaterally PUPIL: Yes PERRL Neck/C-Spine: COMMON NORMALS: full ROM and no lymphadenopathy Lymph: LYMPHATIC: no lymphedema noted Chest: COMMONS NORMALS: inspection of chest normal and palpation of chest normal Resp: COMMON NORMALS: normal respiratory effort and clear to auscultation bilaterally AUSCULTATION: clear to auscultation bilaterally Cardio: COMMON NORMALS: regular rate and regular rhythm RATE: regular rate RHYTHM: regular rhythm GI: COMMON NORMALS: normal to inspection, nondistended, normoactive bowel sounds and non-tender : COMMON NORMALS: Yes no CVA tenderness BLADDER/KIDNEY EXAM: Yes no CVA tenderness Back/Pelvis: COMMON NORMALS: no CVA tenderness and thoracic and lumbar spine normal to inspection Extremity: COMMON NORMALS: normal to inspection GENERAL: No edema Neuro: COMMON NORMALS: oriented x3, moves all extremities and no focal motor deficits Psych: COMMON NORMALS: mental status grossly normal and cooperative Skin: COMMON NORMALS: no rashes or lesions noted GENERAL SKIN EXAM: no rashes or lesions noted Course Vital Signs: Vital signs: Vital Signs Temperature 98.0 F 12/28/19 21:05 Pulse Rate 95 12/28/19 21:05 Respiratory Rate 16 12/28/19 21:05 Blood Pressure 152/75 12/28/19 21:05 Pulse Oximetry 96 12/28/19 21:05 MDM - Dental/Oral MDM Narrative: Medical decision making narrative: Patient comes in today with some left lower jaw pain and swelling. On exam we note poor dentition with mul tiple caries. Patient has redness and tenderness to the gingival area with some swelling on the lateral aspect of the first molar of the left lower jaw. Posterior pharynx is normal-appearing, and no sublingual swelling is noted. Patient handle secretions well. Airway is intact. Differential diagnosis includes dental abscess, dental caries, odontalgia, retropharyngeal abscess. Reviewed exam with patient with recommendations for treatment with antibiotics and follow-up with dentist. Patient reports understanding agreed to plan. Discharge Plan Discharge Patient Disposition: Home, Self-Care Clinical Impression: Dental abscess Condition: Stable Prescriptions: New clindamycin HCl 150 mg capsule 450 mg PO BID 10 Days Qty: 60 RF: 0 Lidocaine Viscous 2 % solution 10 ml MUCOUS MEM Q3H PRN (Reason: pain) Qty: 100 RF: 0 No Action doxepin 50 mg Capsule 50 mg PO BEDTIME PRN (Reason: insomnia) 30 Days Qty: 2 RF: 2 quetiapine 300 mg Tablet 600 mg PO BEDTIME Qty: 60 RF: 4 prazosin 1 mg Capsule 1 mg PO BEDTIME Qty: 30 RF: 4 quetiapine 100 mg Tablet 100 mg PO TID Qty: 90 RF: 4 paroxetine HCl 20 mg Tablet 20 mg PO QAM Qty: 30 RF: 4 metoprolol succinate 25 mg Tablet Extended Release 24 Hr 25 mg PO DAILY Qty: 30 RF: 4 lorazepam 1 mg Tablet 1 mg PO Q6H PRN (Reason: Anxiety) Qty: 60 RF: 2 Discharge Orders: Discharge Order (Routine); Ordered 12/28/19 Ordered By: Live Sutherland Discharge Diet: Usual diet Discharge Activity: Resume usual activity Patient Instructions: Dental Abscess (ED) Activity Restrictions/Additional Instructions: Medications as directed Use acetaminophen and ibuprofen for pain Use viscous lidocaine for further pain relief Ice and heat is also effective Follow-up with dentist for definitive care Coding Level of Care Code ED Recreation Facility Manager for Dalia Leslie Exam Problem Focused
[2019-12-28] MEDS: lidocaine 2% viscous 15 mL UDC MUCOUS MEM (21:27)
[2019-12-28] MEDS: clindamycin 150 mg Capsule 300 MG PO (21:27)
[2019-12-28 21:42] VITALS: BP 152/75; PULSE 98; RESP 18; O2SAT 95
== END 2019-12-28 21:46 | disposition home or self-care (01) ==
PROVIDERS: Emergency Provider Nurse Practitioner Family
DX: K04.7 Periapical abscess without sinus (principal); F17.210 Nicotine dependence, cigarettes, uncomplicated
CPT/HCPCS: 99281; 99283

== ENCOUNTER 2020-01-26 10:18 | Emergency (ER) | payer MEDICAID, SELFPAY ==
[2020-01-26 10:43] VITALS: BP 134/81; PULSE 104; RESP 18; TEMP 37; O2SAT 96; BMI 30.4
--- NOTE | 2020-01-26 11:02 | ED_ITS ---
Entered by Thi Harris, acting as scribe for Veena Singh MD, [facility] Jan 26, 2020 10:18 HPI - Male Genitourinary General: Chief complaint: Urogenital-Male Stated complaint: testicular pain, lump in groin, vomiting Time Seen by Provider: 01/26/20 11:01 Source: patient and RN notes reviewed Mode of arrival: ambulatory Limitations: no limitations History of Present Illness: HPI Narrative: 29 yo male presents to ED with complaints of R sided groin pain, he said right next to the testicle. He said he has had pains in his groin before and he thought this would go away but it hasn't. He said he and his son were playing, his son jumped off of the couch and his son landed on the patient's groin. He said it hurts and morrow to urinate. He denies fever. He said he has been vomiting due to the pain. Complaint: testicle pain and genital injury (son jumped down and landed on his R groin area) Onset (ago): day(s) (10) Duration: constant and progressively worsening Location: right testicle and right inguinal region Radiation: right testicle Severity: severe Quality: sharp Relieving factors: none Exacerbating factors: urination, palpation and movement Context: trauma (son jumped down and landed on his R groin area) Associated symptoms: Reports vomiting Review of Systems General: Reports: 10 or more systems reviewed and unremarkable except in HPI and below Const: Denies: fever, chills or body aches Eyes: Denies: change in vision or blurry vision ENMT: Denies: throat pain, enlarged tonsils, painful swallowing, hoarseness, mouth pain or swelling of lips/tongue Card: Reports: chest pain; Denies: palpitations, irregular heart rhythm, edema or swelling of feet/ankles Resp: Denies: shortness of breath, productive cough or non-productive cough GI: Reports: vomiting : Denies: flank pain, urinary frequency, urinary urgency or urinary hesitancy Musc: Denies: neck pain, back pain or extremity swelling Skin/Breast: Denies: rash, itching or redness Neuro: Denies: headache, numbness in extremities or weakness in extremities Endo: Denies: excessive urination, excessive thirst or tired all the time PFSH ED PFSH: Social History Smoking and tobacco status: current every day smoker Current gender identity: Male Physical Exam Const: COMMON NORMALS: no apparent distress, average body habitus, oriented x3, no limitations, healthy appearing, alert and well nourished HENMT: COMMON NORMALS: normocephalic, head/scalp atraumatic and moist oral mucous membranes HEAD & SCALP: normocephalic and atraumatic Eye: COMMON NORMALS: PERRL, EOMs intact bilaterally, conjunctivae normal and no scleral icterus CONJUNCTIVA: Yes conjunctivae normal PUPIL: Yes PERRL Neck/C-Spine: COMMON NORMALS: full ROM, supple, no meningeal signs, no JVD and no carotid bruits Chest: COMMONS NORMALS: inspection of chest normal and palpation of chest normal Resp: COMMON NORMALS: normal respiratory effort, no retractions, no use of accessory muscles, clear to auscultation bilaterally and percussion normal AUSCULTATION: clear to auscultation bilaterally PERCUSSION: percussion normal Cardio: COMMON NORMALS: no JVD, regular rate, regular rhythm, S1 normal heart sound, S2 normal heart sound, no gallops, no clicks, no murmurs, no rub and peripheral pulses 2+ throughout RATE: regular rate RHYTHM: regular rhythm HEART SOUNDS: S1 normal and S2 normal PERIPHERAL PULSES: pulses 2+ throughout GI: COMMON NORMALS: normal to inspection, nondistended, normoactive bowel sounds, soft to palpation, non-tender, no hepatosplenomegaly, no masses and no bruits PALPATION: Yes soft and Yes no hepatosplenomegaly : COMMON NORMALS: Yes no CVA tenderness BLADDER/KIDNEY EXAM: Yes no CVA tenderness Back/Pelvis: COMMON NORMALS: no CVA tenderness Extremity: COMMON NORMALS: normal to inspection, full ROM, normal capillary refill, no calf tenderness and no pedal edema Neuro: COMMON NORMALS: oriented x3 SENSORIUM/ORIENTATION: Yes alert MENINGEAL SIGNS: Yes no meningeal signs Skin: COMMON NORMALS: no rashes or lesions noted, no wounds, skin turgor normal, no jaundice, no petechiae and no mottling GENERAL SKIN EXAM: no rashes or lesions noted and turgor normal Course Vital Signs: Vital signs: Vital Signs Temperature 98.6 F 01/26/20 10:43 Pulse Rate 104 H 01/26/20 10:43 Respiratory Rate 18 01/26/20 10:43 Blood Pressure 134/81 01/26/20 10:43 Pulse Oximetry 98 01/26/20 11:15 MDM - Male MDM Narrative: Medical decision making narrative: Discussed his lab and imaging findings with him. UA negative for a UTI. Ultrasound shows left-sided epididymis. He has varicoceles on the right. I discussed possible etiologies including STDs and the patient denies risk of STD. I informed him that we are sending his urine for GC and chlamydia. We will treat him with IM Rocephin and doxycycline. He voiced understanding and he is in agreement with the plan. He will f/u with his PCP. Medical Records: Attestation: I reviewed the patient's medical records. Lab Data: Attestation: I reviewed the patient's lab results. Labs: Lab Results 01/26/20 Range/Units 11:25 Urine Color Straw (Yellow) Urine Appearance Clear (CLEAR) Urine pH 6.5 (5-7) Ur Specific Gravit y 1.010 (1.005-1.030) Urine Protein Neg (Negative) Urine Glucose (UA) Norm (Normal) Urine Ketones Negative (Negative) Urine Blood Neg (Negative) Urine Nitrate Negative (Negative) Urine Bilirubin Neg (NEGATIVE) Urine Urobilinogen Norm (Negative) mg/dL Ur Leukocyte Gabriella ase Negative (Negative) Imaging Data: US: Radiologist's impression: [address] [address] Ultrasound Report Signed Patient: Arian Ahumada IIIUnit #: [id number] : 1990Acct#:[id number] Age/Sex: 29 / MADM Date: 01/26/20 Loc: ERRoom/Bed: Attending Dr: Ordering Provider/Ordering MD: Veena Singh MD, [facility] Date of Service: 01/26/20 Procedure(s): US scrotum 08291 Accession Number(s): [id number] Report Number: [id number] WS: [id number] SCROTAL ULTRASOUND REASON FOR EXAM: testicular pain COMPARISON: None available. TECHNIQUE: Grayscale and duplex color Doppler ultrasound examination of the scrotum. FINDINGS: RIGHT: Right testes measures 4.4 cm x 3.1 cm x 2.3 cm. Small hydrocele with debris. Right epididymis measures 1.3 cm x 1.7 cm . Prominent varicoceles are identified. The testicles show normal echotexture bilaterally. LEFT: Left testes measures 4.3 cm x 2.3 cm x 2.3 cm. Left epididymis measures 1.6 cm x 1.7 cm mild fluid accumulation suggesting inflammatory changes. / scrotum [id number] IMPRESSION: Varicoceles on the right side. There appears to be epididymitis on the left side. Dictated By:Darion Peace DO Signed By:Darion Peace DOSigned Date/Time:01/26/20 1227 DD/ Discharge Plan Discharge Patient Disposition: Home, Self-Care Clinical Impression: Epididymitis Condition: Stable Prescriptions: New doxycycline hyclate 100 mg capsule 100 mg PO Q12H 10 Days Qty: 20 RF: 0 Continued doxepin 50 mg Capsule 50 mg PO BEDTIME PRN (Reason: insomnia) 30 Days Qty: 2 RF: 2 quetiapine 300 mg Tablet 600 mg PO BEDTIME Qty: 60 RF: 4 prazosin 1 mg Capsule 1 mg PO BEDTIME Qty: 30 RF: 4 quetiapine 100 mg Tablet 100 mg PO TID Qty: 90 RF: 4 paroxetine HCl 20 mg Tablet 20 mg PO QAM Qty: 30 RF: 4 metoprolol succinate 25 mg Tablet Extended Release 24 Hr 25 mg PO DAILY Qty: 30 RF: 4 lorazepam 1 mg Tablet 1 mg PO Q6H PRN (Reason: Anxiety) Qty: 60 RF: 2 ibuprofen 200 mg Tablet 400 mg PO PRN RF: 0 Discharge Orders: Discharge Order (Routine); Ordered 01/26/20 Ordered By: Veena Singh Patient Instructions: Epididymitis (ED) Activity Restrictions/Additional Instructions: Return for any new or worsening symptoms. Take the antibiotics as prescribed. You will be contacted with the final results of your tests. Follow-up with your primary care provider within 1 week. It is important for you to complete the dose of the antibiotic that you were given. Coding Level of Care Code ED Camouflage Assembler for [facility] Fwd Exam Comprehensive The documentation recorded by the scribe, Harris,Thi R, accurately reflects the service I personally performed and the decisions made by me, Veena Singh MD, [facility] Jan 26, 2020 10:18
[2020-01-26 11:15] VITALS: O2SAT 98
--- NOTE | 2020-01-26 11:18 | US_ITS ---
WS: [id number] SCROTAL ULTRASOUND REASON FOR EXAM: testicular pain COMPARISON: None available. TECHNIQUE: Grayscale and duplex color Doppler ultrasound examination of the scrotum. FINDINGS: RIGHT: Right testes measures 4.4 cm x 3.1 cm x 2.3 cm. Small hydrocele with debris. Right epididymis measures 1.3 cm x 1.7 cm . Prominent varicoceles are identified. The testicles show normal echotexture bilaterally. LEFT: Left testes measures 4.3 cm x 2.3 cm x 2.3 cm. Left epididymis measures 1.6 cm x 1.7 cm mild fluid accumulation suggesting inflammatory changes. US/US scrotum [id number] IMPRESSION: Varicoceles on the right side. There appears to be epididymitis on the left side.
[2020-01-26 11:37] LABS: Add Urine Microscopic? NO
[2020-01-26 11:44] LABS: Bilirubin Urine Neg (NEGATIVE); Blood Urine Neg (Negative); Glucose Urine UA Norm (Normal); Ketones Urine Negative (Negative); Leukocyte Esterase Urine Negative (Negative); Nitrate Urine Negative (Negative); Protein Urine Neg (Negative); Urine Appearance Clear (CLEAR); Urine Color Straw (Yellow); Urobilinogen Urine Norm (Negative); pH Urine 6.5 (5-7)
[2020-01-26 14:09] VITALS: BP 132/88; PULSE 90; RESP 18; O2SAT 99
== END 2020-01-26 14:10 | disposition home or self-care (01) ==
PROVIDERS: Emergency Provider Family Medicine
DX: N45.1 Epididymitis (principal); I86.1 Scrotal varices; F17.200 Nicotine dependence, unspecified, uncomplicated
CPT/HCPCS: 76870; 81003; 87491; 87591; 99283; J0696; J2001

== ENCOUNTER → 2020-03-25 09:06 | Outpatient (BNVA) | payer MEDICAID, SELFPAY | PROVIDERS: Visit Provider Psychiatry & Neurology Psychiatry | DX: F20.9 Schizophrenia, unspecified (principal); F60.3 Borderline personality disorder; F33.2 Major depressive disorder, recurrent severe without psychotic features; F41.1 Generalized anxiety disorder; F12.10 Cannabis abuse, uncomplicated | CPT/HCPCS: 99204 ==

== ENCOUNTER → 2021-06-24 13:59 | Outpatient (BNVA) | payer MEDICAID, SELFPAY | PROVIDERS: Visit Provider Nurse Practitioner Family | DX: Z20.822 Contact with and (suspected) exposure to COVID-19 (principal); J06.9 Acute upper respiratory infection, unspecified; Z20.828 Contact with and (suspected) exposure to other viral communicable diseases | CPT/HCPCS: 87635 ==

== ENCOUNTER 2022-07-30 10:14 | Emergency (ER) | payer MEDICAID, SELFPAY ==
[2022-07-30 10:26] VITALS: BP 129/70; PULSE 69; RESP 14; TEMP 36.2; O2SAT 98; BMI 27.3
--- NOTE | 2022-07-30 10:33 | USR_ITS ---
PROCEDURE INFORMATION: Exam: US Scrotum Exam date and time: 07/30/2022 10:46 AM Age: 32 years old Clinical indication: Scrotum pain; Additional info: Scrot pain TECHNIQUE: Imaging protocol: Real-time ultrasound of the scrotum and contents with color Doppler and image documentation. COMPARISON: US scrotum [id number] 01/26/2020 11:53 AM FINDINGS: Right testicle: Normal. No mass. No torsion. Normal vascular flow. Left testicle: Normal. No mass. No torsion. Normal vascular flow. Epididymides: Normal. Scrotum: Bilateral hydroceles. Small left varicocele. Scrotal wall thickening is mild at 3.3 mm. US/US scrotum [id number] IMPRESSION: Bilateral hydroceles with a left varicocele. No evidence of torsion.
[2022-07-30] MEDS: ketorolac 30 mg/mL INJ IM (12:02)
[2022-07-30 12:32] LABS: Add Urine Microscopic? NO; Charge for UA Resulting for Rev
[2022-07-30 12:48] LABS: Bilirubin Urine Neg (Negative); Blood Urine Neg (Negative); Glucose Urine UA Norm (Normal); Ketones Urine Negative (Negative); Leukocyte Esterase Urine Negative (Negative); Nitrate Urine Negative (Negative); Protein Urine Neg (Negative); Specific Gravity, Urine 1.025 (1.005-1.030); Urine Appearance Clear (CLEAR); Urine Color Yellow (Yellow); Urobilinogen Urine Norm (Negative); pH Urine 5 (5-7)
--- NOTE | 2022-07-31 00:15 | W.ED.MALEGU ---
HPI - Male Genitourinary General: Chief complaint: Urogenital-Male Stated complaint: Testicle pain Time Seen by Provider: 07/30/22 10:31 History of Present Illness: 32-year-old male patient presents to the emergency department complaining of testicle pain. Patient states he had a twisted testicle 2 years ago and it feels the same. Patient denies any urinary complaints patient denies any abdominal pain or back pain. Patient denies any injury or trauma. Patient denies any fever. Patient denies any concern for STDs. Patient denies any penile discharge. Associated symptoms: Deny dysuria, hematuria, nausea or vomiting Review of Systems Const: Denies: fever(s), chills, body aches, change in appetite, change in weight, fatigue, malaise or diaphoresis Eyes: Denies: change in vision, blurry vision, blind spots, photophobia, eye discomfort, eye discharge, eye redness, floaters or seeing flashes ENMT: Denies: throat pain, uvular edema, enlarged tonsils, odynophagia, hoarseness, mouth pain, swelling of lips/tongue, oral sores, bleeding gums, dental pain, dry mouth, ear or mastoid pain, ear discharge, change in hearing, tinnitus, disequilibrium, nasal discharge, nasal congestion, post nasal drip or sinus pain Card: Denies: chest pain, palpitations, irregular heart rhythm, edema, swelling of feet/ankles, lightheadedness, syncope, pre-syncope, dyspnea on exertion, orthopnea, leg pain with exertion or acrocyanosis Resp: Denies: dyspnea, productive cough, non-productive cough, wheezing, stridor, pain on inspiration, change in phlegm color, hemoptysis or chest congestion GI: Denies: abdominal pain, nausea, vomiting, hematemesis, dysphagia, diarrhea, constipation, GI cramping, change in bowel habits or rectal pain : Reports: testicular pain; Denies: flank pain, dysuria, urinary frequency, urinary urgency, urinary hesitancy or hematuria Musc: Denies: neck pain, back pain, extremity pain, extremity swelling, joint pain, joint swelling, joint redness, joint warmth or deformity Skin/Breast: Denies: rash, pruritus, erythema, sores, new lesions, changes in skin color or dry skin Neuro: Denies: headache(s), numbness in extremities, weakness in extremities, sensory changes, lack of coordination, difficulty walking, frequent falls, dizziness, vertigo, confusion, behavioral changes, Slurred speech present, difficulty communicating thoughts or seizure-like activity Psych: Denies: anxiety, depression, suicidal ideation or homicidal ideation Endo: Denies: polyuria, polydipsia, tired all the time, cold intolerance, excessive sweating, flushing, hot flashes or heat intolerance German/Lymph: Denies: easy bruising, easy bleeding, petechiae, purpura, enlarged lymph nodes or tender lymph nodes All/Imm: Denies: urticaria, throat swelling, tongue swelling, facial swelling, acute wheezing or itchy eyes PFSH ED PFSH: Social History Smoking and tobacco status: current every day smoker Current gender identity: Male Physical Exam Const: COMMON NORMALS: no acute distress, average body habitus, patient oriented x3, no limitations, healthy appearing, alert and well nourished HENMT: THROAT: no uvular edema Chest: COMMONS NORMALS: normal inspection of the chest and normal palpation of entire chest wall Resp: COMMON NORMALS: normal respiratory effort, No retractions and No use of accessory muscles Cardio: COMMON NORMALS: regular rate and regular rhythm RATE: regular rate RHYTHM: regular rhythm GI: COMMON NORMALS: Normal to inspection, nondistended, normoactive bowel sounds present, Soft to palpation and non-tender PALPATION: Yes Soft to palpation : SCROTUM: Yes Cremasteric reflex present and Yes Scrotal tenderness present Neuro: COMMON NORMALS: patient oriented x3 SENSORIUM/ORIENTATION: Yes alert Course Vital Signs: Vital signs: Vital Signs Temperature 97.1 F L 07/30/22 10:26 Pulse Rate 69 07/30/22 10:26 Respiratory Rate 14 07/30/22 10:26 Blood Pressure 129/70 07/30/22 10:26 Pulse Oximetry 98 07/30/22 10:26 Oxygen Delivery Me thod 07/30/22 10:26 [facility] - Male Medical Decision Making Patient is well-appearing nontoxic and in no acute distress. Patient's ultrasound is negative for testicular torsion. Patient's findings are consistent with bilateral hydroceles with left varicolle. I have advised patient to take NSAIDs [id number] per label directions. I advised patient to follow-up with primary care. Patient does not want any STD testing. Patient states he wants to go home patient states he just wanted to make sure this was not testicular torsion. Lab Data Radiology Impressions Scrotum Ultrasound 07/30/22 10:33 IMPRESSION: Bilateral hydroceles with a left varicocele. No evidence of torsion. Laboratory Results Urine Color Yellow (Yellow) 07/30/22 12:05 Urine Appearance Clear (CLEAR) 07/30/22 12:05 Urine pH 5 (5-7) 07/30/22 12:05 Ur Specific [place] 1.025 (1.005-1.030) 07/30/22 12:05 Urine Protein Neg (Negative) 07/30/22 12:05 Urine Glucose (UA) Norm (Normal) 07/30/22 12:05 Urine Ketones Negative (Negative) 07/30/22 12:05 Urine Blood Neg (Negative) 07/30/22 12:05 Urine Nitrate Negative (Negative) 07/30/22 12:05 Urine Bilirubin Neg (Negative) 07/30/22 12:05 Urine Urobilinogen Norm mg/dL (Negative) 07/30/22 12:05 Ur Leukocyte Esterase Negative (Negative) 07/30/22 12:05 Discharge Plan Discharge Patient Disposition: Home Clinical Impression: Bilateral hydrocele Condition: Stable Discharge Orders: Discharge ED (Routine); Ordered 07/30/22 Ordered By: Maya Giraldo Discharge Diet: Advance as tolerated Discharge Activity: Increase activity as tolerated Patient Instructions: Opioid Safety Activity Restrictions/Additional Instructions: Please follow up with PCP for recheck or continued pain Coding Level of Care Code ED Svp Chief Marketing Officer for Dalia Leslie
== END 2022-07-30 13:52 | disposition home or self-care (01) ==
PROVIDERS: Emergency Provider Registered Nurse
DX: N43.3 Hydrocele, unspecified (principal); F17.210 Nicotine dependence, cigarettes, uncomplicated
CPT/HCPCS: 76870; 81003; 96372; 99284; J1885

== ENCOUNTER → 2023-03-09 13:18 | Outpatient (BNVA) | payer MEDICAID, SELFPAY | PROVIDERS: Visit Provider Nurse Practitioner | DX: Z79.899 Other long term (current) drug therapy (principal) | CPT/HCPCS: 80061; 83036 ==